=== PATIENT | male | born 1965 | race Caucasian/White ===

== ENCOUNTER 2017-12-17 22:29 | Emergency (ER) | payer BC ==
[~2017-12-17] VITALS: Ht 180.3 cm; Wt 103.0 kg
[~2017-12-17 22:29] MED LIST: ACIPHEX20 MG PO; FLEXERIL10 MG PO; MOTRIN800 MG PO; NAPROSYN500 MG PO; OXYCODONE-APAP1 EACH PO; OXYCONTIN10 MG PO; PERCOCET 10/1 TABLET PO; PROTONIX40 MG PO; TRAMADOL HCL50 MG PO; VALIUM5 MG PO; VITAMIN D31000 UNIT PO
[2017-12-17 23:06] LABS: BASOPHIL (%) 0.4 % (0-1); EOSINOPHIL COUNT 0.1 K/uL (0-0.3); HEMATOCRIT 44.9 % (38.0-50.0); HEMOGLOBIN 15.2 G/DL (12.5-16.6); IMMATURE GRANULOCYTE (%) 0.3 % (0.0-0.7); LYMPHOCYTE (%) 24.7 % (15-42); LYMPHOCYTE COUNT 1.9 K/uL (1.0-2.8); MCH 25.8 PG (29.0-34.0); MCHC 33.9 G/DL (30.0-36.0); MCV 76.1 FL (86-99); MONOCYTE (%) 7.4 % (3-12); MONOCYTE COUNT 0.6 K/uL (0-0.8); NEUTROPHIL (%) 66.2 % (45-76); NEUTROPHIL COUNT 5.2 K/uL (1.8-6.4); PLATELET COUNT 296 K/uL (156-360); RBC DIS.WIDTH-CV 13.2 % (11.8-14.6); RBC DIS.WIDTH-SD 35.9 % (39-53); WHITE BLOOD COUNT 7.8 K/uL (4.1-10.2)
[2017-12-17 23:16] LABS: ALBUMIN 4.6 g/dL (3.2-4.8)
[2017-12-17 23:17] LABS: CHLORIDE 107 mEq/L (99-109); POTASSIUM 3.7 mEq/L (3.7-5.4); SODIUM 141 mEq/L (136-147)
[2017-12-17 23:19] LABS: GLUCOSE 110 mg/dL (70-99); TOTAL PROTEIN 7.7 g/dL (6.4-8.3)
[2017-12-17 23:21] LABS: TOTAL BILIRUBIN 0.4 mg/dL (0.0-1.0)
[2017-12-17 23:22] LABS: ALKALINE PHOSPHATASE 66 IU/L (3-129)
[2017-12-17 23:23] LABS: CREATININE 0.9 mg/dL (0.6-1.3); GFR ESTIMATE (CALCULATED) > 59 mL/min/ (58.99-99999)
[2017-12-17 23:24] LABS: AST (GOT) 18 IU/L (2-34); UREA NITROGEN (BUN) 10 mg/dL (9-23)
[2017-12-17 23:26] LABS: ALT (GPT) 13 IU/L (3-49); LIPASE 20 U/L (1.0-51.0)
[2017-12-18 01:16] LABS: APPEARANCE CLEAR ((CLEAR)); BILIRUBIN NEGATIVE; BLOOD NEGATIVE; COLOR YELLOW ((YELLOW)); GLUCOSE (STRIP) NEGATIVE; KETONES 5; LEUKOCYTES NEGATIVE; NITRITE NEGATIVE; PROTEIN (STRIP) 30; SPECIFIC GRAVITY 1.032 (1.000-1.030); UCUL ADDED? NO; UROBILINOGEN 0.2 MG/DL (0.2-1.0)
[2017-12-18] MEDS ORDERED: NORCO 5/3251 TABLET PO (02:07)
[2017-12-18 02:20] VITALS: BP 138/93
== END 2017-12-18 02:21 | disposition home or self-care (01) ==
LOC: EME 22:29
PROVIDERS: Emergency Medicine
DX: K42.0 Umbilical hernia with obstruction, without gangrene (principal); K21.9 Gastro-esophageal reflux disease without esophagitis; M54.9 Dorsalgia, unspecified; G89.29 Other chronic pain; Z79.891 Long term (current) use of opiate analgesic; Z98.890 Other specified postprocedural states
CPT/HCPCS: 74177; 80053; 81003; 83690; 85025; 99281; 99285; J3010

== ENCOUNTER 2018-01-08 22:13 | Emergency (ER) | payer BC ==
[~2018-01-08] VITALS: Ht 180.3 cm; Wt 103.6 kg
[~2018-01-08 22:13] MED LIST changes: +NORCO 5/3251 TABLET PO
[2018-01-09] MEDS ORDERED: MOTRIN600 MG PO (01:13)
[2018-01-09] MEDS ORDERED: PERCOCET 10/1 TABLET PO (01:13)
[2018-01-09 01:41] VITALS: BP 138/71
== END 2018-01-09 01:42 | disposition home or self-care (01) ==
LOC: EME 22:13
DX: S40.011A Contusion of right shoulder, initial encounter (principal); S39.012A Strain of muscle, fascia and tendon of lower back, initial encounter; G89.29 Other chronic pain; W19.XXXA Unspecified fall, initial encounter; Y93.89 Activity, other specified
CPT/HCPCS: 73030; 99281; 99284

== ENCOUNTER 2018-01-14 15:46 | Emergency (ER) | payer BC ==
[~2018-01-14] VITALS: Ht 180.3 cm; Wt 100.3 kg
[~2018-01-14 15:46] MED LIST changes: +MOTRIN600 MG PO
[2018-01-14] MEDS ORDERED: MOTRIN800 MG PO (18:24)
[2018-01-14] MEDS ORDERED: ATIVAN2 MG PO (18:24)
[2018-01-14] MEDS ORDERED: PREDNISONE20 MG PO (18:24)
[2018-01-14 18:57] VITALS: BP 125/79
== END 2018-01-14 18:59 | disposition home or self-care (01) ==
LOC: EME 15:46
DX: M54.42 Lumbago with sciatica, left side (principal); G89.29 Other chronic pain
CPT/HCPCS: 99281; 99283; J1885; J2060; J7512